=== PATIENT | female | born 1975 | race Native Hawaiian/Other Pacific Islander ===

== ENCOUNTER 2025-03-29 16:56 | Emergency (ER) | payer SELFPAY ==
[2025-03-29] MEDS: Ketorolac 30 MG/ML SDV IM ONE (17:47)
== END 2025-03-29 18:05 | disposition home or self-care (01) ==
LOC: JP.ED 16:56
DX: K04.7 Periapical abscess without sinus (principal); K02.9 Dental caries, unspecified; Z90.710 Acquired absence of both cervix and uterus
CPT/HCPCS: 96372; 99282; J1885